=== PATIENT | female | born 1990 | race Caucasian/White ===

== ENCOUNTER 2018-09-04 11:21 | Emergency (ER) | payer MEDICAID ==
--- NOTE | 2018-09-04 12:19 | EDM.PDOC ---
ED HPI GENERAL MEDICAL PROBLEM - General Chief Complaint: ENT Problem Stated Complaint: SORE THROAT, EAR PAIN, CHEST CONGESTION Time Seen by Provider: 09/04/18 11:45 Source of Information: Reports: Patient, Family History Limitations: Reports: No Limitations - History of Present Illness INITIAL COMMENTS - FREE TEXT/NARRATIVE: 20-year-old female with several different cold symptoms for the past 3 days, started with generalized myalgias 3 days ago. She has developed a cough, sore throat, left ear pain, chills. No nausea or vomiting. Other members of her family had similar symptoms last week. No rash. 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 Denies: Sputum Cardiovascular: Denies: Chest Pain GI/Abdominal: Denies: Abdominal Pain, Nausea, Vomiting : Reports: No Symptoms Musculoskeletal: Reports: Muscle Pain Skin: Denies: Rash Neurological: Reports: Headache ED EXAM, GENERAL - Physical Exam Exam: See Below Exam Limited By: No Limitations General Appearance: Alert, No Apparent Distress Ears: Normal TMs Nose: Clear Rhinorrhea Throat/Mouth: Other (Tonsillar erythema) Head: Atraumatic Neck: No: Lymphadenopathy (R), Lymphadenopathy (L) Respiratory/Chest: No Respiratory Distress, Lungs Clear Neurological: Alert, Oriented Skin Exam: Warm, Dry Course - Vital Signs Last Recorded V/S: Last Vital Signs Temp 100.6 F 09/04/18 11:42 Pulse 94 09/04/18 11:42 Resp 18 09/04/18 11:42 BP 127/68 09/04/18 11:42 Pulse Ox 99 09/04/18 11:42 - Orders/Labs/Meds Orders: Active Orders 24 hr Category Date Time Status CULTURE STREP A CONFIRMATION [RM] Routine Lab 09/04/18 11:56 Results STREP SCRN A RAPID W CULT CONF [RM] Routine Lab 09/04/18 11:56 Results - Re-Assessments/Exams Free Text/Narrative Re-Assessment/Exam: 09/04/18 12:19 Rapid strep was obtained as well as influenza antigens. 09/04/18 12:24 Influenza antigens and strep were all negative. Patient was encouraged to give this a few more days as it is very likely viral, rest and fluids and she should improve. Return anytime if worsening. Departure - Departure Time of Disposition: 12:57 Disposition: Home, Self-Care 01 Condition: Good Clinical Impression: Viral URI with cough - Discharge Information Instructions: Viral Respiratory Infection, [id number] Referrals: PCP,None [Primary Care Provider] - Forms: ED Department Discharge Care Plan Goals: Rest, fluids, ibuprofen or cold medicines may be beneficial. Return anytime if worsening, especially difficulty breathing or consider rechecking in 2-3 days if not improving. - My Orders Last 24 Hours: My Active Orders 09/04/18 11:56 CULTURE STREP A CONFIRMATION [RM] Routine STREP SCRN A RAPID W CULT CONF [RM] Routine - Assessment/Plan Last 24 Hours: My Active Orders 09/04/18 11:56 CULTURE STREP A CONFIRMATION [RM] Routine STREP SCRN A RAPID W CULT CONF [RM] Routine
== END 2018-09-04 12:57 | disposition home or self-care (01) ==
LOC: JP.ED 11:21
DX: J06.9 Acute upper respiratory infection, unspecified (principal); F17.210 Nicotine dependence, cigarettes, uncomplicated; J45.909 Unspecified asthma, uncomplicated; Z79.899 Other long term (current) drug therapy
CPT/HCPCS: 87081; 87430; 87804; 87804-59; 99283

== ENCOUNTER 2021-03-31 06:49 | Day surgery (SDC) | payer MEDICAID ==
[~2021-03-31 06:49] MED LIST: Bupivacaine 0.5% 50 ML MDV ONE; Lidocaine 1% with EPINEPHrine 1:100,000 50 ML MDV ONE
[2021-03-31] MEDS ORDERED: metroNIDAZOLE/Normal Saline 500 MG in Premix Bag 1 BAG IV ONE (07:00)
[2021-03-31] MEDS ORDERED: Sodium Chloride 0.9% 1,000 ML IV SCH (07:00)
[2021-03-31] MEDS ORDERED: fentaNYL 250 MCG/5 ML SDV ONE (07:27)
[2021-03-31] MEDS ORDERED: Rocuronium 50 MG/5 ML Vial ONE (07:27)
[2021-03-31] MEDS ORDERED: Ondansetron 4 MG/2 ML SDV ONE (07:27)
[2021-03-31] MEDS ORDERED: Glycopyrrolate 0.2 MG/ML 5 ML MDV ONE (07:27)
[2021-03-31] MEDS ORDERED: Dexamethasone 4 MG/ML SDV ONE (07:27)
[2021-03-31] MEDS ORDERED: Propofol 200 MG/20 ML SDV ONE (07:27)
[2021-03-31] MEDS ORDERED: Neostigmine Methylsulfate 1 MG/ML 5 ML Syringe ONE (07:27)
[2021-03-31] MEDS ORDERED: ceFAZolin 2 GM in Premix Bag 1 BAG IV ONE (07:30)
[2021-03-31] MEDS ORDERED: Ropivacaine 34 ML, dexAMETHasone 8 MG, EPINEPHrine 0.4 MG, Sodium Chloride 0.9% 43.6 ML NERVRT SCH ×4 (08:00)
[2021-03-31] MEDS ORDERED: Acetaminophen/HYDROcodone 325-5 MG Tab PO PRN (08:34)
[2021-03-31] MEDS ORDERED: Benzocaine/Cetylpyridinium/Menthol Lozenge MUCMEM PRN (08:34)
[2021-03-31] MEDS ORDERED: Docusate Sodium 100 MG Cap PO PRN (08:34)
[2021-03-31] MEDS ORDERED: Zolpidem 5 MG Tab PO PRN (08:34)
[2021-03-31] MEDS ORDERED: fentaNYL 100 MCG/2 ML SDV IVPUSH PRN ×2 (08:34→08:35)
[2021-03-31] MEDS ORDERED: hydrOXYzine HCL 100 MG/2 ML SDV IM PRN (08:34)
[2021-03-31] MEDS ORDERED: Ondansetron 4 MG/2 ML SDV IVPUSH PRN (08:35)
[2021-03-31] MEDS ORDERED: fentaNYL 100 MCG/2 ML SDV ONE (08:54)
--- NOTE | 2021-03-31 11:11 | OR ---
DATE OF PROCEDURE: 03/31/2021 SURGEON: Anshu Soto MD PROCEDURE: Laparoscopic cholecystectomy. PREOPERATIVE DIAGNOSES: Cholelithiasis, cholecystitis. POSTOPERATIVE DIAGNOSES: Cholelithiasis, cholecystitis. COMPLICATIONS: None. OFFICE COMMUNICATION PROFESSOR: None. ANESTHESIA: General. RISKS: Risks, benefits, alternatives, and limitations including, but not limited to infection, bleeding, cystic duct leaks, common bile duct injuries, hematoma, seroma, the possibility of open surgery, and other risks not listed here were explained to the patient and she wished to proceed. PROCEDURE IN DETAIL: The patient was placed in supine position. A supraumbilical curvilinear incision was made. A Veress needle was used to enter the abdomen without abnormality. A drop test was performed without abnormality. This was followed by an additional 10 and 2 5 mm ports under direct visualization. Using blunt dissection, a "clear view" of the gallbladder was obtained with a single pulsatile structure entering the gallbladder and a single non-pulsatile structure entering the gallbladder. These were then subsequently clipped x3 and transected. The remaining one-third of the gallbladder was then removed off the gallbladder bed without difficulty. This was delivered through superior port without difficulty. The pressure was dropped to 7. The liver bed was inspected for bleeding, none was noted. The abdomen was irrigated with 1 L of irrigation. The liquid was removed. The air was removed. The wounds were closed with 3-0 Vicryl and 4-0 Vicryl. Prior to closure, the entry point was inspected for enterotomy or injury, none was noted. Anshu Soto MD /[id number]
--- NOTE | 2021-03-31 11:14 | OR ---
DATE OF PROCEDURE: 03/31/2021 SURGEON: Anshu Soto MD PROCEDURES: 1. Transversus abdominis plane block bilaterally. 2. Rectus sheath block bilaterally. COMPLICATION: None. E COMMERCE MERCHANDISING COORDINATOR: None. RISKS: Risks, benefits, alternatives, and limitations including, but not limited to infection, bleeding, injury to abdominal structures were all explained to the patient and she wished to proceed. PROCEDURE IN DETAIL: The patient was placed in supine position. The right transversus plane was identified first. This was accessed using a 21-gauge needle through 13 megahertz ultrasound probe. 20% of the solution was injected respectively. This was then performed on the left side in the same technique. Bilateral rectus sheaths were also injected under direct visualization. During all 4 of these injections, at no point was the needle blindly advanced, nor was it advanced without ultrasound probe. The procedure was performed in all 4 locations in a same manner, same fashion, same technique in the same sequence using the same equipment. The patient tolerated the procedure well. Anshu Soto MD /[id number]
== END 2021-03-31 14:00 | disposition home or self-care (01) ==
LOC: JP.SDS 06:49 → JP.MS 09:30 → JP.SDS 14:00
PROVIDERS: ATTEND Surgery
DX: K81.1 Chronic cholecystitis (principal); J45.909 Unspecified asthma, uncomplicated; G43.909 Migraine, unspecified, not intractable, without status migrainosus; Z98.890 Other specified postprocedural states
CPT/HCPCS: 47562; 81025; A9270; J0171; J0690; J1100; J2405; J2704; J2710; J2795; J3010; J3490; J7030; 88304